=== PATIENT | female | born 1980 | race African-American/Black ===

== ENCOUNTER 2021-12-13 17:12 | Emergency (ER) | payer OTHER ==
[~2021-12-13] VITALS: Ht 152.4 cm; Wt 73.9 kg
[2021-12-13 18:41] LABS: PLATELET COUNT 273 K/uL (152-353)
[2021-12-13 18:44] LABS: POTASSIUM 3.8 mmol/L (3.6-5.2)
[2021-12-13 19:00] VITALS: BP 132/82; TEMP 97.5
== END 2021-12-13 19:15 | disposition home or self-care (01) ==
LOC: ED 17:12
PROVIDERS: Emergency Medicine
DX: R51.9 Headache, unspecified (principal); R10.31 Right lower quadrant pain; Z98.890 Other specified postprocedural states
CPT/HCPCS: 36415; 80048; 85027; 96374; 96375; 99284; J2270; J2405